=== PATIENT | female | born 1985 | race African-American/Black ===

== ENCOUNTER 2017-06-12 11:43 | Emergency (ER) | payer OTHER ==
[~2017-06-12] VITALS: Ht 162.6 cm; Wt 58.5 kg
[~2017-06-12 11:43] MED LIST: DEPO-PROVE150 MG/11 IM; NORCO 5-325 TA1 EACH PO
[2017-06-12 12:12] LABS: ABSOLUTE LYMPHOCYTES 2.5 thou/uL (0.8-5.3); ABSOLUTE MONOCYTES 0.4 thou/uL (0.0-1.2); ABSOLUTE NEUTROPHILS 6.2 thou/uL (1.6-8.1); BASOPHILS 0.4 %; EOSINOPHILS 0.3 %; HEMATOCRIT 38.8 % (37.0-47.0); HEMOGLOBIN 12.6 gm/dL (12.0-15.0); LYMPHOCYTES 27.1 %; MCH 26.3 pg (26.0-34.0); MCHC 32.6 g/dL (28.0-37.0); MCV 80.7 fL (80.0-100.0); MONOCYTES 4.7 %; MPV 7.8 fl. (7.2-11.1); NUCLEATED RBCS 0 /100WBC; PLATELET COUNT* 444 thou/uL (150-400); POLYS 67.5 %; RDW-CV 19.4 % (10.5-14.5); WBC 9.1 thou/uL (4.0-11.0)
[2017-06-12 12:14] LABS: URINE BILIRUBIN NEGATIVE (Negative); URINE BLOOD NEGATIVE (Negative); URINE CLARITY CLEAR; URINE COLOR YELLOW; URINE GLUCOSE-RANDOM NEGATIVE (Negative); URINE KETONES 2+ (Negative); URINE LEUKOCYTES-REFLEX NEGATIVE (Negative); URINE NITRITE-REFLEX NEGATIVE (Negative); URINE PROTEIN NEGATIVE (Negative); URINE SPECIFIC GRAVITY >= 1.030 (1.005-1.030); URINE UROBILINOGEN 0.2 E.U./dl (0.2-1.0)
[2017-06-12] MEDS ORDERED: DEPO-PROVE150 MG/11 IM (12:22)
[2017-06-12 12:26] LABS: AMP/METHAMP Negative (Negative); BARBITURATES Negative (Negative); BENZODIAZEPINES Negative (Negative); COCAINE Negative (Negative); METHADONE Negative (Negative); OPIATES Negative (Negative); PCP Negative (Negative); THC Negative (Negative)
[2017-06-12 12:26] LABS: CALCIUM 9.1 mg/dL (8.5-10.1); CREATININE 0.9 mg/dL (0.6-1.3); POTASSIUM 3.4 mmol/L (3.5-5.1)
[2017-06-12 12:27] LABS: SALICYLATE < 2.8 mg/dL (2.8-20.0)
[2017-06-12 12:28] LABS: ACETAMINOPHEN < 2 ug/mL (10-30); ALCOHOL < 10 mg/dL (<10)
[2017-06-12 12:30] LABS: ALBUMIN 4.3 g/dL (3.4-5.0); TOTAL BILIRUBIN 0.6 mg/dL (<0.1-1.0); TOTAL PROTEIN 8.4 g/dL (6.4-8.2)
[2017-06-12] MEDS ORDERED: HYDRALAZINE 2525 MG PO (15:16)
[2017-06-12] MEDS ORDERED: ATIVAN1 MG PO (15:17)
[2017-06-12 15:31] VITALS: BP 112/83
--- NOTE | 2017-06-14 12:51 | EKG ---
[place] [address] ELECTROCARDIOGRAM REPORT Name: HERB WRIGHT Room: [facility]#: [id number] Admission: 06/12/17 Attend Phys: Discharge: 06/12/17 Date of : 83 Report #: [id number] THIS REPORT FOR: //name// [facility] ED Test Date: 2017-06-12 Test Time: 12:48:56 Pat Name: HERB WRIGHT Department: Room: Gender: F [employer]: LARON : 1985 Requested By: Fili England Order Number: [id number] MD: Dg Underwood Measurements Intervals [place] Rate: 71 P: 40 [place]: 142 QRS: 57 QRSD: 95 T: 50 QT: 379 QTc: 412 Interpretive Statements Sinus rhythm ST elev, probable normal early repol pattern No previous ECG available for comparison Electronically Signed On 06-14-2017 12:51:31 STEM CRUSHER by Dg Underwood [email or web address] <ELECTRONICALLY SIGNED> By: Dg Underwood MD, [facility] 06/14/17 1251 1248 1248 Dg Underwood MD, FACC /EPI
== END 2017-06-12 15:32 | disposition home or self-care (01) ==
LOC: M.ERS 11:43
PROVIDERS: Emergency Medicine Emergency Medical Services
DX: F41.9 Anxiety disorder, unspecified (principal); F17.210 Nicotine dependence, cigarettes, uncomplicated